=== PATIENT | female | born 1960 | race Caucasian/White ===

== ENCOUNTER 2025-01-23 18:37 | Emergency (ER) | payer OTHER ==
[~2025-01-23] VITALS: Ht 149.9 cm; Wt 62.7 kg
[2025-01-23 18:41] VITALS: TEMP 97.7
[2025-01-23 19:27] VITALS: BP 150/81; PULSE 108; RESP 18; O2SAT 98
[2025-01-23] MEDS: IBUPROFEN 400 MG TABLET PO ONE (23:09)
[2025-01-23] MEDS: ACETAMINOPHEN 500 MG TABLET PO ONE (23:09)
== END 2025-01-23 23:26 | disposition home or self-care (01) ==
LOC: EMS 18:37
DX: S00.511A Abrasion of lip, initial encounter (principal); S09.93XA Unspecified injury of face, initial encounter; R51.9 Headache, unspecified; M25.532 Pain in left wrist; M25.531 Pain in right wrist; I10 Essential (primary) hypertension; W01.0XXA Fall on same level from slipping, tripping and stumbling without subsequent striking against object, initial encounter; Y93.01 Activity, walking, marching and hiking; Y92.410 Unspecified street and highway as the place of occurrence of the external cause; Y99.8 Other external cause status
CPT/HCPCS: 70486; 99284; 73110-TC; 73130-TC; Z7502; Z7610